=== PATIENT | female | born 1980 | race Caucasian/White ===

== ENCOUNTER 2017-01-21 16:12 | Outpatient (CLI) | payer MEDICAID ==
[~2017-01-21] VITALS: Ht 152.4 cm; Wt 74.7 kg
[2017-01-21 16:30] LABS: DAU SCREEN DISCLAIMER
[2017-01-21 16:46] VITALS: BP 117/64
[2017-01-21 16:50] LABS: HEMOGLOBIN 10.5 g/dL (11.7-16.4)
[2017-01-21 17:14] LABS: HIV 1&2 ANTIBODY SCREEN Nonreactive (Nonreactive); HIV-1 p24 ANTIGEN Nonreactive (Nonreactive)
[2017-01-21 17:25] LABS: ASPARTATE AMINO TRANSFERASE 12 U/L (15-37); BLOOD UREA NITROGEN 6 mg/dL (7-18)
== END 2017-01-21 19:55 | disposition home or self-care (01) ==
LOC: LDOP 16:12
PROVIDERS: ATTEND Student in an Organized Health Care Education/Training Program
DX: O26.893 Other specified pregnancy related conditions, third trimester (principal); R10.9 Unspecified abdominal pain; O24.419 Gestational diabetes mellitus in pregnancy, unspecified control; O99.333 Smoking (tobacco) complicating pregnancy, third trimester; F17.200 Nicotine dependence, unspecified, uncomplicated; Z3A.32 32 weeks gestation of pregnancy
CPT/HCPCS: 36415; 59025; 76805; 80053; 80307; 81001; 82950; 85025; 86592; 86703; 86762; 86850; 86900; 87086; 87340; 87899; 99211; G0435; G0463

== ENCOUNTER 2017-03-07 20:59 | Outpatient (CLI) | payer MEDICAID ==
[2017-03-07 21:51] LABS: DAU SCREEN DISCLAIMER
[2017-03-07] MEDS ORDERED: NITR100C56 PO (23:05)
== END 2017-03-07 23:20 | disposition home or self-care (01) ==
LOC: LDOP 20:59
PROVIDERS: ATTEND Student in an Organized Health Care Education/Training Program
DX: O09.523 Supervision of elderly multigravida, third trimester (principal); O26.893 Other specified pregnancy related conditions, third trimester; O99.343 Other mental disorders complicating pregnancy, third trimester; O14.93 Unspecified pre-eclampsia, third trimester; O99.333 Smoking (tobacco) complicating pregnancy, third trimester; F17.200 Nicotine dependence, unspecified, uncomplicated; R10.9 Unspecified abdominal pain; F32.9 Major depressive disorder, single episode, unspecified; Z3A.39 39 weeks gestation of pregnancy
CPT/HCPCS: 59025; 80307; 81001; 87086; 99211; G0463

== ENCOUNTER 2017-03-12 06:14 | Inpatient (IN) | payer MEDICAID ==
[~2017-03-12] VITALS: Ht 149.9 cm; Wt 82.0 kg
[~2017-03-12 06:14] MED LIST: NITR100C56 PO
[2017-03-12] MEDS ORDERED: OXYTOCIN 30U/ 0.9% NaCL 500ML 500 ML IV PRN (06:50)
[2017-03-12] MEDS ORDERED: D5%-LACTATED RINGERS 1,000 ML IV SCH (06:50)
[2017-03-12] MEDS ORDERED: OXYTOCIN 30U/ 0.9% NaCL 500ML 500 ML IV ONE (06:50)
[2017-03-12] MEDS ORDERED: SODIUM CITRATE/CITRIC ACID 30 ML UDC PO PRN (07:00)
[2017-03-12] MEDS ORDERED: FENTANYL PF 100 MCG/2ML IV PRN (07:00)
[2017-03-12] MEDS ORDERED: METOCLOPRAMIDE 5 MG/ML, 2ML IVPush PRN (07:00)
[2017-03-12] MEDS ORDERED: ONDANSETRON 2MG/ML, 2ML IVPush PRN (07:00)
[2017-03-12] MEDS ORDERED: CALCIUM CARBONATE 500 MG TAB.CHEW PO PRN ×2 (07:00→23:00)
[2017-03-12] MEDS ORDERED: FENTANYL PF 100 MCG/2ML IVPush PRN (07:00)
[2017-03-12 07:15] LABS: DAU SCREEN DISCLAIMER
[2017-03-12] MEDS ORDERED: MISOPROSTOL 200 MCG TABLET ONE ×2 (07:50→23:47)
[2017-03-12] MEDS ORDERED: OXYTOCIN 30U/ 0.9% NaCL 500ML 500 ML ONE (07:50)
[2017-03-12] MEDS: LACTATED RINGERS 1,000 ML IV SCH ×5 (07:58→22:42)
[2017-03-12] MEDS: VANCOMYCIN PMX 1GM/200ML 200 ML IVPB SCH ×2 (07:59→20:04)
[2017-03-12 08:06] VITALS: BP 118/65
[2017-03-12] MEDS ORDERED: NEWBORN KIT ONE (10:05)
[2017-03-12] MEDS ORDERED: FENTANYL/BUPIV./NS/PF 250 ML EPIDCONT ONE (13:18)
[2017-03-12] MEDS ORDERED: LIDOCAINE/PF 1.5%-EPI 1:200K, 30ML ONE (13:18)
[2017-03-12] MEDS ORDERED: FENTANYL/BUPIV./NS/PF 250 ML EPIDCONT SCH (13:40)
[2017-03-12] MEDS ORDERED: LACTATED RINGERS 1,000 ML IVBOLUS PRN (14:00)
[2017-03-12] MEDS ORDERED: SODIUM CITRATE/CITRIC ACID 30 ML UDC ONE (22:22)
[2017-03-12] MEDS ORDERED: METOCLOPRAMIDE 5 MG/ML, 2ML ONE (22:22)
[2017-03-12] MEDS ORDERED: LACTATED RINGERS 1,000 ML IV SCH ×2 (22:24→22:30)
[2017-03-12] MEDS ORDERED: OXYTOCIN 30U/ 0.9% NaCL 500ML 500 ML IV SCH (22:24)
[2017-03-12] MEDS ORDERED: FENTANYL PF 100 MCG/2ML ONE (22:27)
[2017-03-12] MEDS ORDERED: LIDOCAINE/MPF 2%-EPI 1:200K, 20 ML ONE (22:27)
[2017-03-12] MEDS: OXYTOCIN 30U/ 0.9% NaCL 500ML 500 ML IV SCH (22:42)
[2017-03-12] MEDS ORDERED: ONDANSETRON 2MG/ML, 2ML ONE (22:45)
[2017-03-12] MEDS ORDERED: MEPERIDINE/PF 50 MG/ML ONE (22:58)
[2017-03-12] MEDS ORDERED: GENTAMICIN 80 MG/2 ML IV ONE ×2 (23:00)
[2017-03-12] MEDS ORDERED: ONDANSETRON 2MG/ML, 2ML IV PRN (23:00)
[2017-03-12] MEDS ORDERED: MISOPROSTOL 200 MCG TABLET PR PRN (23:00)
[2017-03-12] MEDS ORDERED: CARBOPROST TROMETHAMINE 250 MCG/ML, 1ML IM PRN (23:00)
[2017-03-12] MEDS ORDERED: METHYLERGONOVINE 0.2 MG/ML IM PRN (23:00)
[2017-03-12] MEDS ORDERED: OXYcodone/APAP 5/325MG TABLET PO PRN (23:00)
[2017-03-13] MEDS ORDERED: OXYcodone 5 MG/5 ML ORAL.SOL UDC ONE (01:07)
[2017-03-13] MEDS ORDERED: OXYcodone 5 MG/5 ML ORAL.SOL UDC PO PRN (01:12)
[2017-03-13] MEDS: LACTATED RINGERS 1,000 ML IV SCH ×6 (01:17→22:42)
[2017-03-13 02:05] VITALS: BP 128/79
[2017-03-13] MEDS: OXYcodone/APAP 5/325MG TABLET PO PRN ×4 (03:48→17:32)
[2017-03-13 06:15] VITALS: BP 132/84
[2017-03-13 08:00] VITALS: BP 123/83
[2017-03-13] MEDS: OXYTOCIN 30U/ 0.9% NaCL 500ML 500 ML IV SCH ×2 (08:42→18:42)
[2017-03-13] MEDS: PRENATAL VIT/IRON/FA 1 EACH TABLET PO SCH (08:57)
[2017-03-13] MEDS: DOCUSATE 100 MG CAPSULE PO PRN ×2 (08:57→21:59)
[2017-03-13 12:30] VITALS: BP 121/78
[2017-03-13] MEDS ORDERED: METHYLERGONOVINE 0.2MG TABLET ONE (17:23)
[2017-03-13 19:40] VITALS: BP 125/79
[2017-03-13] MEDS: OXYcodone IR 5MG TABLET PO PRN ×2 (21:59→22:00)
[2017-03-13] MEDS: KETOROLAC 30 MG/1 ML IVPush SCH (22:03)
[2017-03-14] VITALS: BP 113/65
[2017-03-14] MEDS ORDERED: OXYcodone IR 5MG TABLET PO PRN (01:00)
[2017-03-14] MEDS: KETOROLAC 30 MG/1 ML IVPush SCH (04:09)
[2017-03-14] MEDS: OXYcodone IR 5MG TABLET PO PRN ×3 (04:09→13:30)
[2017-03-14] MEDS: OXYTOCIN 30U/ 0.9% NaCL 500ML 500 ML IV SCH (04:42)
[2017-03-14] MEDS: LACTATED RINGERS 1,000 ML IV SCH ×2 (04:42→06:42)
[2017-03-14] MEDS: DOCUSATE 100 MG CAPSULE PO PRN ×2 (08:17→22:45)
[2017-03-14] MEDS: PRENATAL VIT/IRON/FA 1 EACH TABLET PO SCH (08:17)
[2017-03-14 08:47] VITALS: BP 118/81
[2017-03-14] MEDS ORDERED: ONDANSETRON ODT 4 MG ONE (09:14)
[2017-03-14] MEDS ORDERED: ONDANSETRON ODT 4 MG PO PRN (09:30)
[2017-03-14] MEDS ORDERED: OXYcodone IR 5MG TABLET ONE ×2 (13:28→17:15)
[2017-03-14] MEDS: IBUPROFEN 600 MG TABLET PO PRN ×2 (13:35→19:54)
[2017-03-14] MEDS ORDERED: OXYcodone/APAP 10/325MG TABLET ONE (17:59)
[2017-03-14] MEDS: OXYcodone/APAP 10/325MG TABLET PO PRN ×2 (18:00→22:45)
[2017-03-14 20:00] VITALS: BP 125/80
[2017-03-14] MEDS: SIMETHICONE 80 MG CHEW TAB PO PRN (22:45)
[2017-03-15] MEDS ORDERED: MEASLES,MUMPS&RUBELLA VACC/PF 0.5 ML SQ-VACC ONE (02:00)
[2017-03-15] MEDS: IBUPROFEN 600 MG TABLET PO PRN ×2 (02:47→09:06)
[2017-03-15] MEDS: SIMETHICONE 80 MG CHEW TAB PO PRN ×2 (02:50→08:06)
[2017-03-15] MEDS ORDERED: POLYETHYLENE GLYCOL 17 GM PACKET PO ONE (06:30)
[2017-03-15 06:50] VITALS: BP 120/79
[2017-03-15] MEDS ORDERED: OXYC-302 PO (07:15)
[2017-03-15] MEDS ORDERED: IBUP800T PO (07:15)
[2017-03-15] MEDS ORDERED: FERR220S2 PO (07:15)
[2017-03-15] MEDS ORDERED: DOCU-30 PO (07:16)
[2017-03-15] MEDS ORDERED: PREN1TAB79 PO (07:18)
[2017-03-15] MEDS: DOCUSATE 100 MG CAPSULE PO PRN (08:06)
[2017-03-15] MEDS: PRENATAL VIT/IRON/FA 1 EACH TABLET PO SCH (08:06)
[2017-03-15] MEDS: OXYcodone IR 5MG TABLET PO PRN (09:03)
== END 2017-03-15 15:48 | disposition home or self-care (01) | DRG 765 ==
LOC: LDIP 06:14 → 2NW 03-13 01:35
PROVIDERS: ADMIT Obstetrics & Gynecology; ATTEND Obstetrics & Gynecology
PROC: 0UB70ZZ Excision of Bilateral Fallopian Tubes, Open Approach (ICD-10-PCS; principal; 2017-03-13)
PROC: 10D00Z1 Extraction of Products of Conception, Low, Open Approach (ICD-10-PCS; 2017-03-13)
DX: O76 Abnormality in fetal heart rate and rhythm complicating labor and delivery (principal); O41.1230 Chorioamnionitis, third trimester, not applicable or unspecified; O75.2 Pyrexia during labor, not elsewhere classified; O99.824 Streptococcus B carrier state complicating childbirth; Z37.0 Single live birth; Z3A.39 39 weeks gestation of pregnancy; Z30.2 Encounter for sterilization; O61.9 Failed induction of labor, unspecified; Z88.0 Allergy status to penicillin; O99.02 Anemia complicating childbirth; D64.9 Anemia, unspecified; Z88.2 Allergy status to sulfonamides; O09.43 Supervision of pregnancy with grand multiparity, third trimester; O99.814 Abnormal glucose complicating childbirth; O62.2 Other uterine inertia
CPT/HCPCS: 36415; 80307; 81001; 82803; 82962; 83036; 85025; 86850; 86900; 86923; 87086; 88302; J1885; J2175; J2405; J3010; J3370; J3490; Q0162; J2590; J2765; J7120

== ENCOUNTER 2019-01-16 23:04 | Emergency (ER) | payer MEDICAID, OTHER ==
[~2019-01-16] VITALS: Ht 152.4 cm; Wt 70.6 kg
[~2019-01-16 23:04] MED LIST changes: +DOCU-131 PO; +FERR220S18 PO; +IBUP-1223 PO; +OXYC-302 PO; +PREN1TAB79 PO
--- NOTE | 2019-01-16 23:30 | NUR ---
Pt to imaging, with tech, via g[facility].
[2019-01-16 23:32] VITALS: BP 118/74
--- NOTE | 2019-01-16 23:33 | NUR ---
BREAK RN: Pt back to room from imaging.
--- NOTE | 2019-01-17 00:23 | NUR ---
Patient given discharge instructions and they have confirmed that they understand the instructions. Patient ambulatory with steady gait.
== END 2019-01-17 00:25 | disposition home or self-care (01) ==
LOC: ED 01-17 00:07
DX: J15.9 Unspecified bacterial pneumonia (principal); F17.200 Nicotine dependence, unspecified, uncomplicated
CPT/HCPCS: 71046; 93005; 99283

== ENCOUNTER 2020-05-18 19:08 | Emergency (ER) | payer SELFPAY ==
[~2020-05-18] VITALS: Ht 149.9 cm; Wt 75.6 kg
[~2020-05-18 19:08] MED LIST changes: +FERR220S16 PO; -FERR220S18 PO
[2020-05-18 19:10] VITALS: BP 135/93
[2020-05-18] MEDS ORDERED: KETOROLAC 30 MG/1 ML ONE (19:47)
--- NOTE | 2020-05-18 19:59 | NUR ---
PT REFUSING IV AT THIS TIME, STATING SHE IS "TOO SCARED." THIS RN PROVIDED EDUCATION ON IMPORTANCE OF IV TO OBTAIN BLOOD WORK, ADMINISTER FLUIDS AND PAIN MEDICATION, AND FOR OTHER POTNTIAL STUDIES. PT STATES SHE DOES "NOT WANT TO GET POKED AND JUST WANTS TO GO HOME." PT STATES "IM CALLING MY DAUGHTER, I JUST WANT TO GO HOME." INFORMED DR STARR.
[2020-05-18] MEDS ORDERED: SODIUM CHLORIDE 0.9% 1,000ML IVBOLUS ONE (20:00)
[2020-05-18] MEDS ORDERED: KETOROLAC 30 MG/1 ML IVPush ONE (20:00)
[2020-05-18] MEDS ORDERED: SODIUM CHLORIDE FLUSH 10ML SYR IVF ONE (20:00)
--- NOTE | 2020-05-18 20:14 | NUR ---
pt being DCed per Dr Michael orders, and education provided on importance of self isolating until results come back from covid and strep and to come back if symptoms worsen. Pt verbalized understanding and ambulated off unit
== END 2020-05-18 20:16 | disposition home or self-care (01) ==
LOC: ED 20:10
DX: B34.9 Viral infection, unspecified (principal); Z20.828 Contact with and (suspected) exposure to other viral communicable diseases; R50.9 Fever, unspecified; R51 Headache; R06.02 Shortness of breath; F17.200 Nicotine dependence, unspecified, uncomplicated; R00.0 Tachycardia, unspecified; Z90.49 Acquired absence of other specified parts of digestive tract; Z90.710 Acquired absence of both cervix and uterus
CPT/HCPCS: 36415; 71045; 87081; 87147; 87635; 87880; 93005; 99285